=== PATIENT | female | born 1965 ===

== ENCOUNTER 2018-05-13 08:07 | Outpatient (CLI) | payer OTHER ==
[~2018-05-13] VITALS: Ht 152.4 cm; Wt 61.2 kg
[2018-05-13] MEDS ORDERED: ZYRTEC10 MG PO (11:18)
[2018-05-13] MEDS ORDERED: LIPO-FLAVONOID1 EACH PO (11:18)
[2018-05-13] MEDS ORDERED: FLONASE16 GM NASAL (11:19)
[2018-05-13] MEDS ORDERED: DERMOTIC20 ML OTIC (11:19)
== END 2018-05-13 08:20 | disposition home or self-care (01) ==
LOC: OFIC 805 08:07
DX: R42 Dizziness and giddiness (principal); J31.0 Chronic rhinitis; J34.3 Hypertrophy of nasal turbinates; H49.02 Third [oculomotor] nerve palsy, left eye

== ENCOUNTER 2018-05-27 07:43 | Outpatient (CLI) | payer OTHER ==
[~2018-05-27] VITALS: Ht 152.4 cm; Wt 61.2 kg
[~2018-05-27 07:43] MED LIST: DERMOTIC20 ML OTIC; FLONASE16 GM NASAL; LIPO-FLAVONOID1 EACH PO; ZYRTEC10 MG PO
[2018-05-27] MEDS ORDERED: LIPO-FLAVONOID1 EACH PO (10:49)
== END 2018-05-27 08:00 | disposition home or self-care (01) ==
LOC: OFIC 805 07:43
DX: R42 Dizziness and giddiness (principal); J31.0 Chronic rhinitis; J34.3 Hypertrophy of nasal turbinates; H49.02 Third [oculomotor] nerve palsy, left eye; H81.10 Benign paroxysmal vertigo, unspecified ear; H81.21 Vestibular neuronitis, right ear